=== PATIENT | female | born 1970 | race Caucasian/White ===

== ENCOUNTER 2017-09-10 20:47 | Emergency (ER) | payer SELFPAY ==
[~2017-09-10] VITALS: Ht 172.7 cm; Wt 83.6 kg
[~2017-09-10 20:47] MED LIST: ASPIRIN325 MG PO; IBUPROFEN200 M1 PO; NORCO 5/3251 TABLET PO
[2017-09-10 21:16] LABS: EOSINOPHIL (%) 1.7 % (0-5); EOSINOPHIL COUNT 0.2 K/uL (0-0.3); HEMATOCRIT 38.5 % (36.0-46.0); IMMATURE GRANULOCYTE (%) 0.2 % (0.0-0.7); LYMPHOCYTE COUNT 1.8 K/uL (1.0-2.8); MCH 29.9 PG (29.0-34.0); MCHC 33.2 G/DL (30.0-36.0); MEAN PLAT.VOLUME 10.1 uM^3 (9.5-12.4); MONOCYTE (%) 7.4 % (3-12); MONOCYTE COUNT 0.6 K/uL (0-0.8); NEUTROPHIL (%) 69.6 % (45-76); PLATELET COUNT 273 K/uL (156-360); RBC DIS.WIDTH-CV 11.9 % (11.8-14.6); RBC DIS.WIDTH-SD 38.8 % (39-53); RED BLOOD COUNT 4.28 M/uL (3.80-5.20); WHITE BLOOD COUNT 8.6 K/uL (4.1-10.2)
[2017-09-10 21:25] LABS: CHLORIDE 108 mEq/L (99-109); POTASSIUM 3.3 mEq/L (3.7-5.4); SODIUM 140 mEq/L (136-147)
[2017-09-10 21:27] LABS: GLUCOSE 130 mg/dL (70-99)
[2017-09-10 21:28] LABS: ANION GAP 11 MEQ/L (2-14)
[2017-09-10 21:31] LABS: GFR ESTIMATE (CALCULATED) > 59 mL/min/
[2017-09-10 21:32] LABS: UREA NITROGEN (BUN) 7 mg/dL (9-23)
[2017-09-10 21:39] LABS: TROP-I INTERPRETATION NEGATIVE; TROPONIN-I < 0.01 ng/mL (0.0-0.30)
[2017-09-10 23:32] VITALS: BP 127/80
== END 2017-09-10 23:32 | disposition home or self-care (01) ==
LOC: EME → EDBD 20:47 → EME 20:47
PROVIDERS: Emergency Medicine
DX: R55 Syncope and collapse (principal); E86.0 Dehydration; Z79.82 Long term (current) use of aspirin
CPT/HCPCS: 80048; 84484; 85025; 93005; 99281; 99285; J7030